=== PATIENT | male | born 1995 | race Caucasian/White ===

== ENCOUNTER 2021-04-14 10:13 | Emergency (ER) | payer OTHER ==
[2021-04-14] MEDS ORDERED: CEPHALEXIN500 MG PO (14:01)
== END 2021-04-14 14:08 | disposition home or self-care (01) ==
LOC: ER1 10:13
DX: S67.190A Crushing injury of right index finger, initial encounter (principal); S61.210A Laceration without foreign body of right index finger without damage to nail, initial encounter; F17.210 Nicotine dependence, cigarettes, uncomplicated; Z88.2 Allergy status to sulfonamides; Z88.8 Allergy status to other drugs, medicaments and biological substances; Z23 Encounter for immunization; W34.00XA Accidental discharge from unspecified firearms or gun, initial encounter
CPT/HCPCS: 12001; 73140; 90471; 90715; 99283